=== PATIENT | male | born 1995 | race Caucasian/White ===

== ENCOUNTER 2019-02-06 03:00 | Emergency (ER) | payer SELFPAY ==
--- NOTE | 2019-02-06 03:43 | ER Document Report ---
ED General - General Chief Complaint: Psych Problem Stated Complaint: PSYCH CONSULT Time Seen by Provider: 02/06/19 03:09 Notes: 23-year-old male with history of schizoaffective disorder and ADHD presents for psych consult. Patient states he just recently came back from [place] where his biologic parents live and has been having trouble at home. Patient lives with his adopted mother and states he wants to be evaluated because his mother keeps telling him he is "evil" and he feels "I am not a bad person." Patient is supposed to be on psychiatric medications however states he does not take them because they make him "very angry." Denies SI or HI patient denies any auditory or visual hallucinations. Per RN note, pt [facility] [place]. TRAVEL OUTSIDE OF THE U.S. IN LAST 30 DAYS: No - Related Data Allergies/Adverse Reactions: No Known Allergies Allergy (Unverified 01/07/16 13:44) Past Medical History - General Information source: Patient - Social History Smoking Status: Unknown if Ever Smoked Drug Abuse: Marijuana Family History: Reviewed & Not Pertinent Patient has suicidal ideation: No Patient has homicidal ideation: No Psychiatric Medical History: Reports: Hx Attention Deficit Hyperactivity Disorder, Hx Obsessive Compulsive Disorder Past Surgical History: Reports: Hx Orthopedic Surgery - Shoulder and arm Review of Systems - Review of Systems Notes: Constitutional: Negative for fever. HENT: Negative for sore throat. Eyes: Negative for visual changes. Cardiovascular: Negative for chest pain. Respiratory: Negative for shortness of breath. Gastrointestinal: Negative for abdominal pain, vomiting or diarrhea. Genitourinary: Negative for dysuria. Musculoskeletal: Negative for back pain. Skin: Negative for rash. Neurological: Negative for headaches, weakness or numbness. 10 point ROS negative except as marked above and in HPI. Physical Exam - Vital signs Vitals: Temp Pulse Resp BP Pulse Ox 97.7 F 90 16 136/85 H 100 02/06/19 03:16 02/06/19 03:16 02/06/19 03:16 02/06/19 03:16 02/06/19 03:16 - Notes Notes: GENERAL: Well-appearing, well-nourished and in no acute distress. HEAD: Atraumatic, normocephalic. EYES: Extraocular movements intact, sclera anicteric, conjunctiva are normal. ENT: Moist mucous membranes. NECK: Normal range of motion, supple without lymphadenopathy or JVD. LUNGS: Breath sounds clear to auscultation bilaterally and equal. No wheezes rales or rhonchi. HEART: Regular rate and rhythm without murmurs, rubs or gallops. ABDOMEN: Soft, nontender, normoactive bowel sounds. No guarding, no rebound. No masses appreciated. EXTREMITIES: Normal range of motion, no pitting or edema. No clubbing or cyanosis. NEUROLOGICAL: Cranial nerves II through XII grossly intact. Normal speech, normal gait. PSYCH: Normal mood, normal affect. Patient is pleasant, hyperactive. No suicidal ideation or homicidal ideation. Calm and cooperative SKIN: Warm, Dry, normal turgor, no rashes or lesions noted. Course - Re-evaluation Re-evalutation: 02/06/19 23 y/o male presents for psychiatric consult. Denies SI/HI or auditory/visual hallucinations. Labwork including CBC, CMP, tylenol level, salicylate level, ethanol level, UDS, and UA ordered for medical clearance. Pt does not meet IVC criteria at this time as he is not SI/HI or acutely psychotic. Pt is medically cleared at this time, pending psychiatric evaluation. - Vital Signs Vital signs: Temp Pulse Resp BP Pulse Ox 97.7 F 90 16 136/85 H 100 02/06/19 03:16 02/06/19 03:16 02/06/19 03:16 02/06/19 03:16 02/06/19 03:16 - Laboratory Result Diagrams: 02/06/19 04:08 02/06/19 04:08 Laboratory results interpreted by me: 02/06/19 02/06/19 02/06/19 03:20 04:08 04:08 MCH 33.5 H Albumin 5.2 H Urine Protein 30 H Urine Urobilinogen 2.0 H Ur Leukocyte Esterase TRACE H Urine Ascorbic Acid 40 H Salicylates < 1.0 L Acetaminophen < 10 L Discharge - Discharge Clinical Impression: Other social stressor Condition: Stable Disposition: PSYCH HOSP/UNIT
[2019-02-06 04:34] LABS: ABSOLUTE EOSINOPHILS # (AUTO) 0.1 10^3/uL (0.0-0.6); ABSOLUTE LYMPHOCYTES (AUTO) 2.1 10^3/uL (0.5-4.7); ABSOLUTE MONOCYTES (AUTO) 0.6 10^3/uL (0.1-1.4); ABSOLUTE NEUT (AUTO) 4.1 10^3/uL (1.7-8.2); BASOPHILS % (AUTO) 0.4 % (0-2); EOSINOPHILS % (AUTO) 1.9 % (0-6); HEMATOCRIT 44.8 % (37.9-51.0); HEMOGLOBIN 16.1 g/dL (13.5-17.0); LYMPHOCYTES % (AUTO) 30.2 % (13-45); MEAN CORPUSCULAR HEMOGLOBIN 33.5 pg (27.0-33.4); MEAN CORPUSCULAR HGB CONC 35.9 g/dL (32.0-36.0); MEAN CORPUSCULAR VOLUME 93 fl (80-97); MONOCYTES % (AUTO) 8.5 % (3-13); PLATELET COUNT 244 10^3/uL (150-450); RED CELL DISTRIBUTION WIDTH 12.3 % (11.5-14.0); TOTAL CELLS COUNTED % (AUTO) 100 %
[2019-02-06 04:54] LABS: ACETAMINOPHEN < 10 ug/mL (10-30); ALBUMIN 5.2 g/dL (3.5-5.0); ALCOHOL < 10 mg/dL (NONE DETECTED); ALKALINE PHOSPHATASE 74 U/L (38-126); ANION GAP 13 (5-19); ASPARTATE AMINO TRANSFERASE 30 U/L (17-59); BILIRUBIN,DIRECT 0.1 mg/dL (0.0-0.4); BILIRUBIN,TOTAL 0.9 mg/dL (0.2-1.3); BLOOD UREA NITROGEN 18 mg/dL (7-20); CARBON DIOXIDE 28 mmol/L (22-30); CHLORIDE 102 mmol/L (98-107); GLUCOSE 88 mg/dL (75-110); POTASSIUM 3.9 mmol/L (3.6-5.0); SALICYLATE < 1.0 mg/dL (2.0-20.0); TOTAL PROTEIN 8.1 g/dL (6.3-8.2)
[2019-02-06 05:01] LABS: APPEARANCE,URINE SLIGHTLY-CLOUDY; BILIRUBIN,URINE NEGATIVE (NEGATIVE); COLOR,URINE AMBER; GLUCOSE, URINE NEGATIVE (NEGATIVE); KETONES,URINE NEGATIVE (NEGATIVE); LEUKOCYTE ESTERASE,URINE TRACE (NEGATIVE); NITRITE,URINE NEGATIVE (NEGATIVE); PROTEIN,URINE 30 mg/dL (NEGATIVE); URINE SPECIFIC GRAVITY 1.031
[2019-02-06 05:40] LABS: URINE AMPHETAMINES SCREEN NEGATIVE; URINE BARBITURATES SCREEN NEGATIVE; URINE BENZODIAZEPINES SCREEN NEGATIVE; URINE COCAINE SCREEN NEGATIVE; URINE MARIJUANA (THC) SCREEN UNCONFIRMED POSITIVE; URINE METHADONE SCREEN NEGATIVE; URINE PHENCYCLIDINE SCREEN NEGATIVE
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
--- NOTE | 2019-02-06 12:00 | ER Document Report ---
Doctor's Note Notes: 02/06/19 11:57 Note submitted for continuation of care as patient was seen earlier this morning by another ED provider. Greeted patient and he sat bolt upright in the bed, very pleasant and positive. Elevated mood with congruent affect. Patient denied pain. See behavioral health note. Patient in IVC status at this time, medication recommendations pending.
[2019-02-06] MEDS: BENZTROPINE MESYLATE 1 MG TABLET PO SCH ×2 (12:56→21:04)
[2019-02-06] MEDS: OLANZAPINE 5 MG TABLET PO SCH ×2 (12:57→21:04)
[2019-02-06] MEDS: FLUOXETINE HCL 20 MG CAPSULE PO SCH (13:00)
--- NOTE | 2019-02-06 23:25 | EKG REPORT ---
SEVERITY:- NORMAL ECG - SINUS RHYTHM : Confirmed by: Varun Robertson 06-Feb-2019 23:24:36
[2019-02-07 09:27] VITALS: BP 127/69
--- NOTE | 2019-02-07 10:51 | ER Document Report ---
Doctor's Note Notes: 02/07/19 10:49 As the rounding provider this AM, I assessed the patient's labs, vitals, and records. No concerning findings this morning. Patient denies any acute complaints. Patient is cleared for disposition by psychiatry. It appears the patient is medically stable for discharge and mental health wishes to discharge patient with close follow-up services in place. Mental health wishes to prescribe Prozac 20 mg daily, Zyprexa, the ODT form 5 mg every 12 hours, and Cogentin 1 mg daily.
[2019-02-07] MEDS: FLUOXETINE HCL 20 MG CAPSULE PO SCH (11:33)
[2019-02-07] MEDS: OLANZAPINE 5 MG TABLET PO SCH (11:33)
[2019-02-07] MEDS ORDERED: FLUOXETINE HCL 20 MG CAPSULE PO SCH (12:37)
== END 2019-02-07 11:35 | disposition home or self-care (01) ==
LOC: ER 03:00
DX: F25.9 Schizoaffective disorder, unspecified (principal); T50.906A Underdosing of unspecified drugs, medicaments and biological substances, initial encounter; Z91.128 Patient's intentional underdosing of medication regimen for other reason; Z91.14 Patient's other noncompliance with medication regimen; Z62.821 Parent-adopted child conflict; F12.10 Cannabis abuse, uncomplicated
CPT/HCPCS: 36415; 80053; 80307; 81001; 85025; 93005; 93010; 99285

== ENCOUNTER 2019-03-20 02:13 | Emergency (ER) | payer OTHER, MEDICAID ==
[2019-03-20 03:15] LABS: ABSOLUTE EOSINOPHILS # (AUTO) 0.2 10^3/uL (0.0-0.6); ABSOLUTE LYMPHOCYTES (AUTO) 1.5 10^3/uL (0.5-4.7); ABSOLUTE MONOCYTES (AUTO) 0.4 10^3/uL (0.1-1.4); ABSOLUTE NEUT (AUTO) 4.7 10^3/uL (1.7-8.2); BASOPHILS % (AUTO) 0.3 % (0-2); EOSINOPHILS % (AUTO) 2.5 % (0-6); HEMATOCRIT 42.9 % (37.9-51.0); HEMOGLOBIN 15.5 g/dL (13.5-17.0); LYMPHOCYTES % (AUTO) 22.1 % (13-45); MEAN CORPUSCULAR HEMOGLOBIN 33.3 pg (27.0-33.4); MEAN CORPUSCULAR VOLUME 92 fl (80-97); MONOCYTES % (AUTO) 5.4 % (3-13); PLATELET COUNT 246 10^3/uL (150-450); RED BLOOD COUNT 4.65 10^6/uL (4.35-5.55); RED CELL DISTRIBUTION WIDTH 12.1 % (11.5-14.0); SEGMENTED NEUTROPHILS % (AUTO) 69.7 % (42-78); TOTAL CELLS COUNTED % (AUTO) 100 %; WHITE BLOOD COUNT 6.8 10^3/uL (4.0-10.5)
[2019-03-20 03:33] LABS: ALBUMIN 4.7 g/dL (3.5-5.0); ALKALINE PHOSPHATASE 77 U/L (38-126); ANION GAP 9 (5-19); ASPARTATE AMINO TRANSFERASE 21 U/L (17-59); BILIRUBIN,DIRECT 0.1 mg/dL (0.0-0.4); BLOOD UREA NITROGEN 16 mg/dL (7-20); CALCIUM 9.9 mg/dL (8.4-10.2); CARBON DIOXIDE 30 mmol/L (22-30); CHLORIDE 105 mmol/L (98-107); GLUCOSE 87 mg/dL (75-110); POTASSIUM 3.8 mmol/L (3.6-5.0); TOTAL PROTEIN 7.5 g/dL (6.3-8.2)
[2019-03-20 03:34] LABS: ACETAMINOPHEN < 10 ug/mL (10-30); ALCOHOL < 10 mg/dL (NONE DETECTED); SALICYLATE < 1.0 mg/dL (2.0-20.0)
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
[2019-03-20 05:02] LABS: APPEARANCE,URINE SLIGHTLY-CLOUDY; BILIRUBIN,URINE NEGATIVE (NEGATIVE); COLOR,URINE AMBER; GLUCOSE, URINE NEGATIVE (NEGATIVE); KETONES,URINE 20 mg/dL (NEGATIVE); LEUKOCYTE ESTERASE,URINE NEGATIVE (NEGATIVE); NITRITE,URINE NEGATIVE (NEGATIVE); PROTEIN,URINE 30 mg/dL (NEGATIVE); URINE SPECIFIC GRAVITY 1.025; UROBILINOGEN,URINE NEGATIVE mg/dL (<2.0)
[2019-03-20 05:11] LABS: URINE AMPHETAMINES SCREEN NEGATIVE; URINE BARBITURATES SCREEN NEGATIVE; URINE BENZODIAZEPINES SCREEN NEGATIVE; URINE COCAINE SCREEN NEGATIVE; URINE METHADONE SCREEN NEGATIVE; URINE PHENCYCLIDINE SCREEN NEGATIVE
[2019-03-20 05:14] LABS: URINE MARIJUANA (THC) SCREEN UNCONFIRMED POSITIVE
--- NOTE | 2019-03-20 09:11 | ER Document Report ---
Doctor's Note Notes: 03/20/19 09:11 S: 23-year-old male here on IVC orders. He is schizoaffective. Apparently he was acting out and displaying aggressive behavior. He was brought in with IVC paperwork. He has been admitted several times for his mental health disorder. His mom is bedside this morning and has quite a few questions about his care. I have advised that I will follow-up with our behavioral health team and find out about the current plans. Patient reports that this morning he is doing well other than he developed a rash after having a shower this morning. He states it itches. He denies using any soap while in the shower this morning. He denies any new foods that could be making him break out. He states that he does not have any shortness of breath or difficulty breathing. O: Constitutional: Alert, oriented, in no acute distress Cardiac: RRR, no murmurs/rubs/gallops Lungs: CTA, no Wheezing, rhonchi, or rales. abd: soft, non tender Skin: There is a papular erythematous rash to patient's face, chest, back. no vesicles or desquamation -- appears to be a contact dermatitis. no oral involvement, no SOB, no tongue swelling Psych: Pressured speech; interrupts mother often during conversation, flight of idea, bizarre affect A/P: Rounded on patient this AM. He has a new rash that appears to be a contact dermatitis. Will write for benadryl and monitor closely. Mom has a lot of questions about placement this AM. Will round with Behavioral Health Team to discuss current plan.
[2019-03-20] MEDS ORDERED: DIPHENHYDRAMINE HCL 25 MG CAPSULE PO ONE (09:23)
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
[2019-03-20 11:49] VITALS: BP 118/74
--- NOTE | 2019-03-20 17:16 | EKG REPORT ---
SEVERITY:- NORMAL ECG - SINUS RHYTHM : Confirmed by: Varun Robertson 20-Mar-2019 17:15:27
== END 2019-03-20 11:51 | disposition home or self-care (01) ==
LOC: ER 02:13
DX: Z04.6 Encounter for general psychiatric examination, requested by authority (principal); F25.9 Schizoaffective disorder, unspecified; T43.596A Underdosing of other antipsychotics and neuroleptics, initial encounter; T42.1X6A Underdosing of iminostilbenes, initial encounter; T43.216A Underdosing of selective serotonin and norepinephrine reuptake inhibitors, initial encounter; Z91.14 Patient's other noncompliance with medication regimen; L25.9 Unspecified contact dermatitis, unspecified cause; Z62.821 Parent-adopted child conflict
CPT/HCPCS: 36415; 80053; 80307; 81001; 85025; 93005; 93010; 99285

== ENCOUNTER 2019-04-26 21:23 | Emergency (ER) | payer OTHER, MEDICAID ==
[2019-04-26 22:05] LABS: ABSOLUTE EOSINOPHILS # (AUTO) 0.1 10^3/uL (0.0-0.6); ABSOLUTE LYMPHOCYTES (AUTO) 2.5 10^3/uL (0.5-4.7); ABSOLUTE MONOCYTES (AUTO) 0.5 10^3/uL (0.1-1.4); ABSOLUTE NEUT (AUTO) 5.1 10^3/uL (1.7-8.2); BASOPHILS % (AUTO) 0.2 % (0-2); EOSINOPHILS % (AUTO) 1.3 % (0-6); HEMATOCRIT 45.7 % (37.9-51.0); HEMOGLOBIN 16.3 g/dL (13.5-17.0); LYMPHOCYTES % (AUTO) 30.3 % (13-45); MEAN CORPUSCULAR HEMOGLOBIN 33.3 pg (27.0-33.4); MEAN CORPUSCULAR HGB CONC 35.6 g/dL (32.0-36.0); MEAN CORPUSCULAR VOLUME 93 fl (80-97); MONOCYTES % (AUTO) 5.6 % (3-13); PLATELET COUNT 299 10^3/uL (150-450); RED CELL DISTRIBUTION WIDTH 12.1 % (11.5-14.0); SEGMENTED NEUTROPHILS % (AUTO) 62.6 % (42-78); TOTAL CELLS COUNTED % (AUTO) 100 %; WHITE BLOOD COUNT 8.2 10^3/uL (4.0-10.5)
[2019-04-26 22:19] LABS: ACETAMINOPHEN < 10 ug/mL (10-30); ALBUMIN 5.1 g/dL (3.5-5.0); ALCOHOL < 10 mg/dL (NONE DETECTED); ALKALINE PHOSPHATASE 81 U/L (38-126); ANION GAP 10 (5-19); ASPARTATE AMINO TRANSFERASE 24 U/L (17-59); BILIRUBIN,DIRECT 0.2 mg/dL (0.0-0.4); BILIRUBIN,TOTAL 0.6 mg/dL (0.2-1.3); BLOOD UREA NITROGEN 12 mg/dL (7-20); CALCIUM 10.5 mg/dL (8.4-10.2); CARBON DIOXIDE 34 mmol/L (22-30); CHLORIDE 98 mmol/L (98-107); GLUCOSE 107 mg/dL (75-110); POTASSIUM 4.4 mmol/L (3.6-5.0); SALICYLATE < 1.0 mg/dL (2.0-20.0); TOTAL PROTEIN 8.5 g/dL (6.3-8.2)
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
[2019-04-26 23:37] LABS: APPEARANCE,URINE CLEAR; BILIRUBIN,URINE NEGATIVE (NEGATIVE); COLOR,URINE YELLOW; GLUCOSE, URINE NEGATIVE (NEGATIVE); KETONES,URINE NEGATIVE (NEGATIVE); LEUKOCYTE ESTERASE,URINE NEGATIVE (NEGATIVE); NITRITE,URINE NEGATIVE (NEGATIVE); PROTEIN,URINE NEGATIVE (NEGATIVE); URINE SPECIFIC GRAVITY 1.018; UROBILINOGEN,URINE NEGATIVE mg/dL (<2.0)
[2019-04-27 00:09] LABS: URINE AMPHETAMINES SCREEN NEGATIVE; URINE BARBITURATES SCREEN NEGATIVE; URINE BENZODIAZEPINES SCREEN NEGATIVE; URINE COCAINE SCREEN NEGATIVE; URINE MARIJUANA (THC) SCREEN NEGATIVE; URINE METHADONE SCREEN NEGATIVE; URINE PHENCYCLIDINE SCREEN NEGATIVE
--- NOTE | 2019-04-27 14:30 | EKG REPORT ---
SEVERITY:- NORMAL ECG - SINUS RHYTHM : Confirmed by: Varun Robertson 27-Apr-2019 14:29:05
[2019-04-27 16:43] VITALS: BP 140/80
[2019-04-27] MEDS ORDERED: OLANZAPINE 5 MG TABLET PO ONE (17:02)
--- NOTE | 2019-04-27 17:06 | ER Document Report ---
Doctor's Note Notes: 04/27/19 17:07 Chart reviewed patient rounded on. Patient to be discharged home with his aunt. Patient denies suicidal or homicidal ideations. Patient agrees to take Zyprexa. He will be following up with community resources. Patient has been calm all day no complaints PHYSICAL EXAMINATION: GENERAL: Well-appearing and in no acute distress HEAD: Atraumatic, normocephalic. EYES: extraocular movements intact, sclera anicteric, conjunctiva are normal. ENT: nares patent, . Moist mucous membranes. NECK: Normal range of motion, supple LUNGS: Respiratory rate even unlabored HEART: Regular rate EXTREMITIES: Normal range of motion, ambulating around the room with no complaints NEUROLOGICAL: Cranial nerves grossly intact. PSYCH: Normal mood, normal affect. Calm SKIN: Warm, Dry
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
== END 2019-04-27 17:20 | disposition home or self-care (01) ==
LOC: ER 21:23
DX: F20.9 Schizophrenia, unspecified (principal); Z91.14 Patient's other noncompliance with medication regimen
CPT/HCPCS: 36415; 80053; 80307; 81001; 85025; 93005; 93010; 99285

== ENCOUNTER 2019-06-06 19:09 | Emergency (ER) | payer MEDICAID, OTHER ==
[2019-06-06] MEDS ORDERED: HYDROXYZINE PAMOATE 50 MG CAPSULE PO ONE (20:56)
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
[2019-06-06 21:35] LABS: ABSOLUTE EOSINOPHILS # (AUTO) 0.1 10^3/uL (0.0-0.6); ABSOLUTE LYMPHOCYTES (AUTO) 2.3 10^3/uL (0.5-4.7); ABSOLUTE MONOCYTES (AUTO) 0.7 10^3/uL (0.1-1.4); ABSOLUTE NEUT (AUTO) 7.2 10^3/uL (1.7-8.2); BASOPHILS % (AUTO) 0.3 % (0-2); EOSINOPHILS % (AUTO) 0.9 % (0-6); HEMATOCRIT 45.6 % (37.9-51.0); HEMOGLOBIN 16.2 g/dL (13.5-17.0); LYMPHOCYTES % (AUTO) 22.4 % (13-45); MEAN CORPUSCULAR HGB CONC 35.6 g/dL (32.0-36.0); MEAN CORPUSCULAR VOLUME 93 fl (80-97); MONOCYTES % (AUTO) 6.7 % (3-13); PLATELET COUNT 301 10^3/uL (150-450); RED BLOOD COUNT 4.92 10^6/uL (4.35-5.55); RED CELL DISTRIBUTION WIDTH 12.2 % (11.5-14.0); SEGMENTED NEUTROPHILS % (AUTO) 69.7 % (42-78); TOTAL CELLS COUNTED % (AUTO) 100 %; WHITE BLOOD COUNT 10.3 10^3/uL (4.0-10.5)
[2019-06-06 21:45] LABS: ALBUMIN 5.1 g/dL (3.5-5.0); ALKALINE PHOSPHATASE 95 U/L (38-126); ANION GAP 11 (5-19); ASPARTATE AMINO TRANSFERASE 41 U/L (17-59); BILIRUBIN,DIRECT 0.2 mg/dL (0.0-0.4); BILIRUBIN,TOTAL 0.9 mg/dL (0.2-1.3); BLOOD UREA NITROGEN 12 mg/dL (7-20); CALCIUM 10.1 mg/dL (8.4-10.2); CARBON DIOXIDE 30 mmol/L (22-30); CHLORIDE 98 mmol/L (98-107); GLUCOSE 88 mg/dL (75-110); TOTAL PROTEIN 8.4 g/dL (6.3-8.2)
[2019-06-06 21:48] LABS: ACETAMINOPHEN < 10 ug/mL (10-30); ALCOHOL < 10 mg/dL (NONE DETECTED); SALICYLATE < 1.0 mg/dL (2.0-20.0)
[2019-06-06 21:59] LABS: APPEARANCE,URINE SLIGHTLY-CLOUDY; BILIRUBIN,URINE SMALL (NEGATIVE); COLOR,URINE AMBER; GLUCOSE, URINE NEGATIVE (NEGATIVE); KETONES,URINE TRACE mg/dL (NEGATIVE); LEUKOCYTE ESTERASE,URINE NEGATIVE (NEGATIVE); NITRITE,URINE NEGATIVE (NEGATIVE); PROTEIN,URINE 100 mg/dL (NEGATIVE); URINE SPECIFIC GRAVITY 1.031
[2019-06-06 22:16] LABS: URINE AMPHETAMINES SCREEN NEGATIVE; URINE BARBITURATES SCREEN NEGATIVE; URINE BENZODIAZEPINES SCREEN NEGATIVE; URINE COCAINE SCREEN NEGATIVE; URINE METHADONE SCREEN NEGATIVE; URINE PHENCYCLIDINE SCREEN NEGATIVE
[2019-06-06 22:25] LABS: URINE MARIJUANA (THC) SCREEN UNCONFIRMED POSITIVE
[2019-06-07 07:36] VITALS: BP 117/75
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
--- NOTE | 2019-06-07 12:03 | EKG REPORT ---
SEVERITY:- NORMAL ECG - SINUS RHYTHM ST ELEV, PROBABLE NORMAL EARLY REPOL PATTERN : Confirmed by: Varun Robertson 07-Jun-2019 12:03:11
== END 2019-06-07 09:14 | disposition home or self-care (01) ==
LOC: ER 19:09
DX: S00.511A Abrasion of lip, initial encounter (principal); F20.89 Other schizophrenia; Y04.2XXA Assault by strike against or bumped into by another person, initial encounter; Y92.009 Unspecified place in unspecified non-institutional (private) residence as the place of occurrence of the external cause; Z91.14 Patient's other noncompliance with medication regimen
CPT/HCPCS: 93005; 99285; 36415; 80307 ×4; 85025; 80053; 81001; 93010; J3490